=== PATIENT | female | born 2000 | race American Indian/Alaskan Native ===

== ENCOUNTER 2022-10-05 15:13 | Inpatient (IN) ==
[2022-10-05 16:03] LABS: Basophils # (auto) 0.04 K/uL (0-0.2); Basophils % (auto) 0.4 %; Eosinophils # (auto) 0.24 K/uL (0-0.50); Eosinophils % (auto) 2.1 %; Hematocrit (blood only) 38.7 % (37.0-47.0); Hemoglobin 13.2 g/dl (12.0-16.0); Immature Granulocytes # (auto) 0.06 K/uL (0.01-0.20); Immature Granulocytes % (auto) 0.5 %; Lymphocytes # (auto) 2.51 K/uL (1.2-3.4); Lymphocytes % (auto) 22.4 %; Mean Corpuscular Hemoglobin 28.1 pg (25.0-34.0); Mean Corpuscular Hgb Conc 34.1 g/dL (32.0-36.0); Mean Corpuscular Volume 82.5 fL (80.0-100.0); Mean Platelet Volume 9.9 fL (9.4-12.4); Monocytes # (auto) 0.55 K/uL (0.11-0.59); Monocytes % (auto) 4.9 %; Neutrophils % (auto) 69.7 %; Platelet Count 395 K/uL (130-400); RDW Coefficient of Variation 13.1 % (11.5-14.5); Red Blood Count 4.69 M/uL (4.20-5.40)
[2022-10-05 16:11] LABS: Pregnancy Test, Urine Negative (Negative)
[2022-10-05 16:13] LABS: Appearance Urine Clear (Clear); Bilirubin Urine Negative (Negative); Blood Urine Negative (Negative); Color Urine Yellow; Glucose Urine UA Negative (Negative); Ketones Urine Negative (Negative); Leukocyte Esterase Urine Negative (Negative); Nitrite Urine Negative (Negative); Protein Urine Negative (Negative); Specific Gravity Urine 1.022 (1.000-1.030); Urobilinogen Urine Negative (Negative)
--- NOTE | 2022-10-05 16:13 | Emergency Department Note ---
Impression & Plan Depression with suicidal ideation, Homicidal ideations ED Provider Note NAME: MONTSE ACUNA AGE: 21 SEX: F : 2000 ARRIVES VIA: [employer] INFORMANT: Patient, ED PROVIDER(S): Tyler Woods DO CHIEF COMPLAINT: Mental health evaluation HPI: The patient is a 21-year-old female who presented to the emergency department directly from [facility] for mental health evaluation. The patient states that she went to see the mental health department on campus for problems with thoughts of hurting yourself as well as thoughts of hurting specific people. She has been very vague about her complaints. She states that she was sent to the emergency department for further evaluation as well as for possible inpatient management. The patient has had no recent trauma. She denies having any overdose or drug use. The patient states that she does not feel safe at home. The patient has no history of previous admission for this in the past. The patient denies having any other medical issues including nausea vomiting or diarrhea. ROS: See above HPI for pertinent positives & negatives. A total of 10 systems reviewed and were otherwise negative. PAST MEDICAL HISTORY: See Below PAST SURGICAL HISTORY: See Below FAMILY HISTORY: See Below SOCIAL HISTORY: See Below HOME MEDICATIONS: See Below ALLERGIES: See Below VITALS: See Below PHYSICAL EXAMINATION: GENERAL: The patient is awake and alert. She appears somewhat guarded. EYES: The conjunctivae are clear. The pupils are round and reactive. EARS, NOSE, MOUTH AND THROAT: The nose is without any evidence of any deformity. NECK: The neck is nontender and supple. RESPIRATORY: Normal respiratory effort is noted there is no evidence of wheezing rhonchi or rales CARDIOVASCULAR: Regular rate and rhythm noted there no murmurs rubs or gallops normal S1 normal S2. GASTROINTESTINAL: The abdomen is soft. Abdomen is nontender. MUSCULOSKELETAL/EXTREMITIES: There is no evidence of gross deformity full range of motion is noted in the hips and shoulders. SKIN: There is no obvious evidence of any rash. There are no petechiae, pallor or cyanosis noted. NEUROLOGIC: Patient is awake alert and oriented x3 strength is symmetric patellar reflexes are 2+ bilaterally PSYCH: The patient makes good eye contact mostly evaluation. Her affect is flat. She continues to admit to thoughts of hurting other people. She becomes very vague when pressed. MEDICAL DECISION MAKING: The patient is a 21-year-old female who presented to the emergency department for a mental health evaluation. The patient arrived from [facility] from the campus. The patient was voicing significant suicidality as well as homicidal ideation. The patient was very vague with me but when she discussed her condition with the mental health telehealth case manager she was much more specific about her thoughts. The patient was felt to be a good candidate for inpatient management. She was medically cleared in the emergency department. She was evaluated by the mental health telehealth case manager. At this time she has been evaluated by [facility] for possible inpatient management on their unit. Triage Nursing notes reviewed. Prior medical records reviewed Vital Signs: reviewed and remarkable for no significant abnormalities Differential diagnosis: Mood disorder, infection, hypoglycemia, electrolyte abnormalities, cardiac sources, intracerebral event, toxicologic, trauma, neurologic, as well as other pathologies. ER treatment provided: See below Diagnostics interpreted by me: ECG: none Laboratory studies: As stated above and show below. Imaging studies: See below. Consultation(s): The case was discussed with the mental with telehealth case manager. Past Med/Surg History Medical History (Updated 10/05/22 @ 19:53 by Tyler Woods DO) Asthma Lupus anticoagulant disorder No pertinent family history Pulmonary embolus Surgical History No pertinent past surgical history Social History Smoking Status: Never smoker Feels Safe at Home: Yes Gender Identity: Female Allergies Allergies Allergy/AdvReac Type Severity Reaction Status Date / Time No Known Allergies Allergy Verified 10/05/22 15:47 Home Meds Home Medications Medication Instructions Recorded Confirmed acetaminophen 500 mg tablet 500 mg PO Q6H PRN Pain 07/12/21 10/05/22 (Tylenol Extra Strength) Results & Data (ED) Vital Signs Vital Signs - 24 hr 10/05/22 15:15 10/05/22 15:41 10/05/22 18:45 Pulse Rate [Right Finger] 84 90 Respiratory Rate 16 16 Respiratory Effort / Characteristics Non-Labored Respiratory Depth Normal Normal Respiratory Pattern Regular Blood Pressure [Right Arm] 115/69 108/74 Blood Pressure Mean [Right Arm] 84 85 Blood Pressure Position [Right Arm] Sitting Pulse Oximetry 97 99 Oxygen Delivery Method Room Air Room Air Sepsis Recent Fever Within 48 Hours No Sepsis New/Unexplained Change in Mental Status N/A Sepsis Action Taken by Nursing No Action Required Home Medications Current Medication List: was personally reviewed by me Laboratory Data Attestation: I reviewed the patient's lab results. 10/05/22 15:35 10/05/22 15:35 Lab Results 10/05/22 10/05/22 10/05/22 Range/Units 15:35 15:35 15:35 WBC 11.20 H (4.8-10.8) K/ul RBC 4.69 (4.20-5.40) M/uL Hgb 13.2 (12.0-16.0) g/dl Hct 38.7 (37.0-47.0) % MCV 82.5 (80.0-100.0) fL MCH 28.1 (25.0-34.0) pg MCHC 34.1 (32.0-36.0) g/dL RDW Std Deviation 39.0 (36.4-46.3) fL RDW Coeff of Libra 13.1 (11.5-14.5) % Plt Count 395 (130-400) K/uL MPV 9.9 (9.4-12.4) fL Immature Gran % (Auto) 0.5 % Neut % (Auto) 69.7 % Lymph % (Auto) 22.4 % [place] % (Auto) 4.9 % Eos % (Auto) 2.1 % Baso % (Auto) 0.4 % Neut # (Auto) 7.80 H (1.40-6.50) K/uL Lymph # (Auto) 2.51 (1.2-3.4) K/uL [place] # (Auto) 0.55 (0.11-0.59) K/uL Eos # (Auto) 0.24 (0-0.50) K/uL Baso # (Auto) 0.04 (0-0.2) K/uL Immature Gran # (Auto) 0.06 (0.01-0.20) K/uL Sodium 136 (136-145) mmol/L Potassium 3.8 (3.5-5.1) mmol/L Chloride 108 H (98-107) mmol/L Carbon Dioxide 23 (21-32) mmol/L Anion Gap 5 (3-11) BUN 10 (6-23) mg/dl Creatinine 0.65 (0.6-1.2) mg/dl Est Cr Clr Drug Dosing 127.9 ml/min Est GFR ( Amer) 148.1 ml/min Est GFR (Non-Af Amer) 127.8 ml/min BUN/Creatinine Ratio 15.4 (10-20) Glucose 98 (70-99(Fasting)) mg/dl Calcium 9.6 (8.6-10.3) mg/dl Total Bilirubin 0.4 (0.2-1.0) mg/dl AST 13 (13-39) U/L ALT 13 (7-52) U/L Alkaline Phosphatase 65 (34-104) U/L Total Protein 7.4 (6.0-8.3) gm/dl Albumin 4.2 (3.4-5.0) gm/dl Globulin 3.2 (2.5-4.0) gm/dl Albumin/Globulin Ratio 1.3 (0.9-2) TSH 1.306 (0.300-4.500) uIu/ml Urine Color Urine Appearance (Clear) Urine pH (4.5-7.5) Ur Specific [place] (1.000-1.030) Urine Protein (Negative) Urine Glucose (UA) (Negative) Urine Ketones (Negative) Urine Blood (Negative) Urine Nitrite (Negative) Urine Bilirubin (Negative) Urine Urobilinogen (Negative) Ur Leukocyte Esterase (Negative) Urine Test (Negative) Salicylates (3.0-30) mg/dl Urine Opiates Screen (Neg) Ur Methadone, Qual (Neg) Acetaminophen (10-30) ug/ml Urine Barbiturates (Neg) Ur Phencyclidine (PCP) (Neg) U Amphetamin/Meth Scrn (Neg) MDMA (Ecstasy) Screen (Neg) U Benzodiazepines Scrn (Neg) Ur Cocaine Metabolite (Neg) U Marijuana (THC) Screen (Neg) Ethyl Alcohol mg/dL (<10.0) mg/dl SARS-CoV-2, RNA, NAAT (NEGATIVE) 10/05/22 10/05/22 10/05/22 Range/Units 15:35 15:35 15:35 WBC (4.8-10.8) K/ul RBC (4.20-5.40) M/uL Hgb (12.0-16.0) g/dl Hct (37.0-47.0) % MCV (80.0-100.0) fL MCH (25.0-34.0) pg MCHC (32.0-36.0) g/dL RDW Std Deviation (36.4-46.3) fL RDW Coeff of Libra (11.5-14.5) % Plt Count (130-400) K/uL MPV (9.4-12.4) fL Immature Gran % (Auto) % Neut % (Auto) % Lymph % (Auto) % [place] % (Auto) % Eos % (Auto) % Baso % (Auto) % Neut # (Auto) (1.40-6.50) K/uL Lymph # (Auto) (1.2-3.4) K/uL [place] # (Auto) (0.11-0.59) K/uL Eos # (Auto) (0-0.50) K/uL Baso # (Auto) (0-0.2) K/uL Immature Gran # (Auto) (0.01-0.20) K/uL Sodium (136-145) mmol/L Potassium (3.5-5.1) mmol/L Chloride (98-107) mmol/L Carbon Dioxide (21-32) mmol/L Anion Gap (3-11) BUN (6-23) mg/dl Creatinine (0.6-1.2) mg/dl Est Cr Clr Drug Dosing ml/min Est GFR ( Amer) ml/min Est GFR (Non-Af Amer) ml/min BUN/Creatinine Ratio (10-20) Glucose (70-99(Fasting)) mg/dl Calcium (8.6-10.3) mg/dl Total Bilirubin (0.2-1.0) mg/dl AST (13-39) U/L ALT (7-52) U/L Alkaline Phosphatase (34-104) U/L Total Protein (6.0-8.3) gm/dl Albumin (3.4-5.0) gm/dl Globulin (2.5-4.0) gm/dl Albumin/Globulin Ratio (0.9-2) TSH (0.300-4.500) uIu/ml Urine Color Urine Appearance (Clear) Urine pH (4.5-7.5) Ur Specific [place] (1.000-1.030) Urine Protein (Negative) Urine Glucose (UA) (Negative) Urine Ketones (Negative) Urine Blood (Negative) Urine Nitrite (Negative) Urine Bilirubin (Negative) Urine Urobilinogen (Negative) Ur Leukocyte Esterase (Negative) Urine Test (Negative) Salicylates < 3.0 L (3.0-30) mg/dl Urine Opiates Screen (Neg) Ur Methadone, Qual (Neg) Acetaminophen < 3 L (10-30) ug/ml Urine Barbiturates (Neg) Ur Phencyclidine (PCP) (Neg) U Amphetamin/Meth Scrn (Neg) MDMA (Ecstasy) Screen (Neg) U Benzodiazepines Scrn (Neg) Ur Cocaine Metabolite (Neg) U Marijuana (THC) Screen (Neg) Ethyl Alcohol mg/dL < 10.0 (<10.0) mg/dl SARS-CoV-2, RNA, NAAT NEGATIVE (NEGATIVE) 10/05/22 10/05/22 10/05/22 Range/Units 15:35 15:35 Unknown WBC (4.8-10.8) K/ul RBC (4.20-5.40) M/uL Hgb (12.0-16.0) g/dl Hct (37.0-47.0) % MCV (80.0-100.0) fL MCH (25.0-34.0) pg MCHC (32.0-36.0) g/dL RDW Std Deviation (36.4-46.3) fL RDW Coeff of Libra (11.5-14.5) % Plt Count (130-400) K/uL MPV (9.4-12.4) fL Immature Gran % (Auto) % Neut % (Auto) % Lymph % (Auto) % [place] % (Auto) % Eos % (Auto) % Baso % (Auto) % Neut # (Auto) (1.40-6.50) K/uL Lymph # (Auto) (1.2-3.4) K/uL [place] # (Auto) (0.11-0.59) K/uL Eos # (Auto) (0-0.50) K/uL Baso # (Auto) (0-0.2) K/uL Immature Gran # (Auto) (0.01-0.20) K/uL Sodium (136-145) mmol/L Potassium (3.5-5.1) mmol/L Chloride (98-107) mmol/L Carbon Dioxide (21-32) mmol/L Anion Gap (3-11) BUN (6-23) mg/dl Creatinine (0.6-1.2) mg/dl Est Cr Clr Drug Dosing ml/min Est GFR ( Amer) ml/min Est GFR (Non-Af Amer) ml/min BUN/Creatinine Ratio (10-20) Glucose (70-99(Fasting)) mg/dl Calcium (8.6-10.3) mg/dl Total Bilirubin (0.2-1.0) mg/dl AST (13-39) U/L ALT (7-52) U/L Alkaline Phosphatase (34-104) U/L Total Protein (6.0-8.3) gm/dl Albumin (3.4-5.0) gm/dl Globulin (2.5-4.0) gm/dl Albumin/Globulin Ratio (0.9-2) TSH (0.300-4.500) uIu/ml Urine Color Yellow Urine Appearance Clear (Clear) Urine pH 5.0 (4.5-7.5) Ur Specific [place] 1.022 (1.000-1.030) Urine Protein Negative (Negative) Urine Glucose (UA) Negative (Negative) Urine Ketones Negative (Negative) Urine Blood Negative (Negative) Urine Nitrite Negative (Negative) Urine Bilirubin Negative (Negative) Urine Urobilinogen Negative (Negative) Ur Leukocyte Esterase Negative (Negative) Urine Test Negative (Negative) Salicylates (3.0-30) mg/dl Urine Opiates Screen Neg (Neg) Ur Methadone, Qual Neg (Neg) Acetaminophen (10-30) ug/ml Urine Barbiturates Neg (Neg) Ur Phencyclidine (PCP) Neg (Neg) U Amphetamin/Meth Scrn Neg (Neg) MDMA (Ecstasy) Screen Neg (Neg) U Benzodiazepines Scrn Neg (Neg) Ur Cocaine Metabolite Neg (Neg) U Marijuana (THC) Screen Neg (Neg) Ethyl Alcohol mg/dL (<10.0) mg/dl SARS-CoV-2, RNA, NAAT (NEGATIVE) Discharge Plan Visit Data Chief Complaint: Mental Health Evaluation Stated Complaint: [facility] ED Provider: Tyler Woods Discharge Problem: Depression with suicidal ideation, Homicidal ideations Patient Disposition: Still a Patient Forms Stand Alone Forms: My [facility], Suicide Prevention Resources Prescriptions Prescriptions: No Action acetaminophen [Tylenol Extra Strength] 500 mg Tablet 500 mg PO Q6H PRN (Reason: Pain) Referrals Referrals: PCP,NO [Physician] -
[2022-10-05 16:21] LABS: Albumin Globulin Ratio 1.3 (0.9-2); Albumin Level 4.2 gm/dl (3.4-5.0); BUN Creatinine Ratio 15.4 (10-20); Bilirubin,Total 0.4 mg/dl (0.2-1.0); Calcium 9.6 mg/dl (8.6-10.3); Creatinine Clr Calc Pharmacy 127.9 ml/min; Est GFR (African American) 148.1 ml/min; Est GFR (Non-African American) 127.8 ml/min; Globulin 3.2 gm/dl (2.5-4.0); Potassium 3.8 mmol/L (3.5-5.1); Total Protein 7.4 gm/dl (6.0-8.3)
[2022-10-05 16:29] LABS: Acetaminophen < 3 ug/ml (10-30); Salicylate < 3.0 mg/dl (3.0-30)
[2022-10-05 16:47] LABS: Amphetamines+Metham, Urine Neg (Neg); Barbiturates, Urine Neg (Neg); Benzodiazepine, Urine Neg (Neg); Cocaine, Urine Neg (Neg); MDMA (Ecstacy), Urine Neg (Neg); Methadone, Urine Neg (Neg); Opiate, Urine Neg (Neg); Phencyclidine, Urine Neg (Neg)
[2022-10-05] MEDS ORDERED: BISMUTH SUBSALICYLATE LIQD 236 ML PO PRN (20:19)
[2022-10-05] MEDS ORDERED: ALUMINUM/MAGNESIUM SUSP 30 ML UDC PO PRN (20:19)
[2022-10-05] MEDS ORDERED: ACETAMINOPHEN 325 MG TAB PO PRN (20:19)
[2022-10-05] MEDS ORDERED: hydrOXYzine HCl 25 MG TAB PO PRN ×2 (20:19)
[2022-10-05] MEDS ORDERED: MAGNESIUM HYDROXIDE SUSP 30 ML UDC PO PRN (20:19)
[2022-10-05] MEDS ORDERED: SODIUM CHLORIDE 0.65% NA SOLN 45 ML (OCEAN) PRN (20:19)
[2022-10-05] MEDS ORDERED: OLANZapine 5 MG TABLET PO PRN (22:12)
--- NOTE | 2022-10-06 08:42 | History & Physical ---
Date of Service October 06, 2022 Impression / Recommendations Impression Montse is a 21 year old woman with a history of self-harm, lupus anticoagulant disorder (hasn't been adherent with her Xarelto prescription) who was admitted for SI and HI toward a peer. Diagnostically consistent with Autism Spectrum Disorder as well as likely major depressive disorder with increased irritability leading to HI versus borderline personality disorder versus antisocial personality disorder versus obsessive compulsive disorder. Well she did not carry a diagnosis of ASD prior to admission she notes her family was not receptive to mental health diagnoses or treatment and at this time, even without the ability to do a comprehensive ASD workup involving neuropsych testing, she presents with all of the classic symptoms of ASD to the point that making the diagnosis at this time seems clinically appropriate and important as it may impact access to treatment options moving forward. The patient is deemed unstable and requires psychiatric hospitalization for diagnostic clarification, safety and stabilization, medication management and development of further coping skills. Acute risk of self harm is elevated, as discussed below, due to SI with possible plans and severe depression. Acute risk of harm to others is felt to be high currently given recent HI toward a peer who lives in her dorm on campus. Discussed medication treatment options in detail. Discussed risks, benefits and alternatives. Patient would like to start and consented to sertraline for MDD, anxiety, possible OCD. Reviewed side effects including but not limited to: GI, LOPEZ, sexual side effects, and counseled on black box warning of potential for emergence of or increased SI and need to let staff know should this occur or should they feel unsafe. Also discussed importance of seeking emergency care following discharge if this side effect occurs in the future. MNPR due to intermittent HI (1) Autism spectrum disorder: (2) Depression with suicidal ideation: (3) Homicidal ideations: Plan 10/06/2022: The patient was admitted to the [facility] ([facility]) on q15 min checks (behavioral with suicide precautions) for safety. The patient will participate in group, recreational, and milieu therapies and will be offered additional individual and family sessions as clinically appropriate. -Start sertraline 25mg daily -Have her complete Y-BOCS OCD screening as some of her HI seems to be ego- dystonic and instrusive in nature -She is unwilling to share the name of the peer that she had HI toward but stated that she shared this information with her RA supervisor [employer]intering [employer], she signed an PADMA for student care and advocacy at [facility]. Spoke with [employer] student care and advocacy alongside social work who confirmed they believe they know the peer she identified and will complete the duty to warn via [facility] police and will confirm when this has occurred. Inventory Assets Strengths: supportive relationship with her partner, willing to get treatment Needs: safety and stabilization, medication adjustment, additional coping skills, increased outpatient services Suicide Risk Level Suicide Risk Level: High-Moderate (q15 min suicide checks) (severe depression with SI with plan prior to admission but feels safe in the hospital, able to safety contract and agrees to let nursing/staff know should they develop plan, intent or feel unable to remain safe. 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 Chief Complaint "A lot of things are mixing with anger". History of Present Illness Montse presented to the hospital at the recommendation of [employer] [facility] for worsening SI with inability to safety plan and HI toward a peer with thoughts of stabbing him with a knife. She has been self-harming via cutting and burning herself and more recently via punching her fist into a wall as "I've determined how far I can hurt my dominant hand without it interfering with my work". She describes her self-harm as occurring in bouts and that it increased in July due to worsening depression and stressors related to school. 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 She endorses symptoms of depression including hopelessness, helplessness, low motivation, anhedonia, poor concentration and "sporadic" energy level, sleep, and appetite. She speaks vaguely at times about various symptoms, including suicidality, by quoting statistics about methods of suicide and rates of lethality of various forms of suicide but notes that she hasn't ever settled on a specific plan because "a lot of them aren't logistically sound due to lack of access". She endorses a long history of having intrusive homicidal thoughts but that these intensified toward a peer who also serves as an RA after "we had a break-up of sorts, not a romantic one but that's the best way to describe it". Since that time she'd had thoughts of wanting to hurt this peer to the point "my desire and I have too much alone time with him" caused her to seek help from a supervisor [employer]intering [employer] which lead to her [facility]S evaluation and then presentation to the hospital. She describes these violent thoughts as historically being "thoughts of harm as a defensive manner" but recently became more directed and "less tangible" which she attributes to not feeling as though she fits in and facing a lot of stress and social issues. She describes that "there's a [place] more [place] and I'm not permitted to feel human". She is confident that she would never act on her violent thoughts stating "it wouldn't be logical to hurt people that culturally indefensible across all cultures". She describes her recent stressors as "a concurrent collision and snowballing" of multiple factors but concretely as the academic/professional concerns about her ability to ultimately find a career in [id number] design. Further recent history reviewed and confirmed as documented by ED psych CM on 10/05/2022: "Pt was referred here from [facility]S due to not being able to contract for safety for herself or contract to not harm others. Pt states she does not have a plan to hurt anyone but does have specific people in mind due to different situations that happened. She has no history of violence or aggression. She has been having suicidal thoughts as well and stated her plan would be to overdose. She stated she does have a specific drug in mind but is not sure how she would obtain it currently. She stated she has researched how much she would need to take in order to kill herself. Pt also has two perez on her arm. She stated she has a history of self-harm by cutting and burning herself. She has never needed medical attention due to self-harm. The pt is very vague in answering questions and it's difficult to get straight answers from her. CAPS report states she was vague with them as well. Their report states the pt reports no specific plan for suicide but that she created a "to-do" list for things that she would like to complete prior to killing herself. Met with pt to complete psychiatric assessment. Pt states she does not have any mental health diagnosis and has never been inpatient for treatment before. She has no outpatient providers. Pt reports increased depression symptoms of sadness, crying, feeling helpless and hopeless, self-devaluation, loss of daily functioning, lack of motivation, sporadic appetite, and sporadic sleep. Pt reports she will go days at a time without feeling hungry at all and then will feel extremely hungry other days. She also reports having mood shifts that are similar in that she will have periods of time where her mood is elevated and she has increased energy. She reports these periods can last from a couple of hours to a couple of days. During these periods she states she is more talkative, has racing thoughts, flight of ideas, excessive spending, and requires less sleep. Pt stated that she sometimes gets verbally aggressive but has not acted out aggressively. She does have homicidal thoughts toward people. There are specific people that the pt has thoughts about killing and harming but she will not disclose who these people are. She stated this past Wednesday she was having a disagreement with one of these individuals and found herself having thoughts to kill him by stabbing while also having a knife in her hand. Pt denies picking the knife up due to these thoughts and stated the knife was already in her hand and she believes having possession of the knife is what made her think of this plan. She also stated she later in the evening had thoughts of slamming this individual into a wall and choking him just to see the fear in his eyes. While discussing her homicidal thoughts and thoughts of violence the pt has a large smile on her face." The ED provider recommended she be restarted on Xarelto but she declined allowing me to start this, stated she will consider restarting in the outpatient setting. She is not currently prescribed any psychiatric medications. Psychiatric ROS notable for no current nor history of symptoms of luana, psychosis, PTSD, nor eating disorder. History of self-harm via cutting, burning, punching. Past Psychiatric History Previous Psych History: no formal diagnoses Outpatient Services: none, saw a grief counselor at age 9 after her mom Previous Psych Admissions: n/a Do You Have Access To A Gun?: Yes (at father's home in [place]) History of Previous Suicide Attempt: No Past Medication Trials: none Past Head Trauma/Neuro History History of Concussion/Seizure: No Allergies Allergy/AdvReac Type Severity Reaction Status Date / Time No Known Allergies Allergy Verified 10/06/22 12:51 Home Medications Medication Instructions Recorded Confirmed Type acetaminophen 500 mg tablet 500 mg PO Q6H PRN Pain 07/12/21 10/05/22 History (Tylenol Extra Strength) Family History Family History of: Doesn't Know Alcohol History Hx of Alcohol Use Over the Past 12 Months: No AUDIT Total Score: 5 Occassional social use Smoking Use Have You Smoked or Used Tobacco Products in the Last 30 Days: No Smoking Status: Never smoker Substance History Hx of Prescription Med Misuse Over the Past 12 Months: No Hx of Over the Counter Med Misuse Over the Past 12 Months: No Hx of Inhalent Misuse Over the Past 12 Months: No Hx of Organic Substance Use Over the Past 12 Months: No Hx of Illegal Substances/Street Drug Use Over Past 12 Months: No Problems as a Result of Past Substance Use: None Identified Has used cannabis about 10 times in the last 1.5 years, typically while using alcohol as she finds the cannabis then keeps her mood "dennys". Personal History Living Arrangements: Dorm Childhood: Grew up in [place], her mother when she was 9. Has distant relationship with her father. He lives between [place] and [place]. 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) Marital Status: Single (has significant other, Warren, who lives in [facility]) Number Of Children: 0 Beliefs That Will Affect Care: None Current Legal Problems: No Hx Legal Problems: No Hx Traumatic Life Events: Yes (mother at age 9) Patient History Medical History (Updated 10/06/22 @ 12:35 by Hyacinth Aguila MD) Asthma Lupus anticoagulant disorder No pertinent family history Pulmonary embolus Surgical History No pertinent past surgical history Social History Smoking Status: Never smoker Preferred Language: Central African Communication Ability: Effective Incident Engineer Required: No Beliefs That Will Affect Care: None Feels Safe at Home: Yes Gender Identity: Female Assistive Devices: Glasses Review of Systems Review of Systems: All systems reviewed & are unremarkable except as noted in HPI & below Physical Exam Psychiatric: Orientation: alert and oriented x 3 Apperance: appropriately dressed and appropriately groomed Eye Contact: + poor eye contact Motor Behavior: no abnormal motor movements Speech: + abnormal rate/rhythm/volume of speech (monotone with little variability ) Affect: + constricted affect Mood: + depressed mood and + anxious mood Thought Process: goal directed thought process and + concrete thought process Thought Content: + obsessions (of violent thoughts) and reality based without delusions Suicidal Thoughts: denies suicidal thoughts (intermittent thoughts ) and denies suicidal intent; + reports suicidal plan (none for hospital but has thought of various options for outside hospital) Homicidal Thoughts: denies homicidal intent; + reports homicidal thoughts (intermittent HI, sometimes ego-syntonic and sometimes ego- dystonic) and + reports homicidal plan (considering stabbing peer with a knife ) Hallucinations: no auditory hallucinations and no visual hallucinations Cognition: recent memory grossly intact, remote memory grossly intact, attention grossly intact and language grossly intact Estimated Intelligence: consistent with education level Insight: + limited insight Judgment: + limited judgement Vital Signs (Past 24 Hours): Last Vital Signs Temp 36.9 C 10/06/22 06:39 Pulse 73 10/06/22 06:40 Resp 16 10/06/22 06:39 BP 101/69 10/06/22 06:40 Pulse Ox 98 10/05/22 21:10 O2 Del Method Room Air 10/05/22 21:10 Exam Statement: A physical exam was performed in the ED by Dr. Woods for the purposes of medical clearance. I accept that physical as correct and adequate for the purposes of the inpatient physical exam. Results & Data ([facility]) Laboratory Results Laboratory Results - last 24 hr 10/05/22 10/05/2210/05/23 15:35 15:35 15:35 WBC 11.20 H RBC 4.69 Hgb 13.2 Hct 38.7 MCV 82.5 MCH 28.1 MCHC 34.1 RDW Std Deviation 39.0 RDW Coeff of Libra 13.1 Plt Count 395 MPV 9.9 Immature Gran % (Auto) 0.5 Neut % (Auto) 69.7 Lymph % (Auto) 22.4 Elk % (Auto) 4.9 Eos % (Auto) 2.1 Baso % (Auto) 0.4 Neut # (Auto) 7.80 H Lymph # (Auto) 2.51 Elk # (Auto) 0.55 Eos # (Auto) 0.24 Baso # (Auto) 0.04 Immature Gran # (Auto) 0.06 Sodium 136 Potassium 3.8 Chloride 108 H Carbon Dioxide 23 Anion Gap 5 BUN 10 Creatinine 0.65 Est Cr Clr Drug Dosing 127.9 Est GFR ( Amer) 148.1 Est GFR (Non-Af Amer) 127.8 BUN/Creatinine Ratio 15.4 Glucose 98 Calcium 9.6 Total Bilirubin 0.4 AST 13 ALT 13 Alkaline Phosphatase 65 Total Protein 7.4 Albumin 4.2 Globulin 3.2 Albumin/Globulin Ratio 1.3 TSH 1.306 Urine Color Urine Appearance Urine pH Ur Specific [place] Urine Protein Urine Glucose (UA) Urine Ketones Urine Blood Urine Nitrite Urine Bilirubin Urine Urobilinogen Ur Leukocyte Esterase Urine Test Salicylates Urine Opiates Screen Ur Methadone, Qual Acetaminophen Urine Barbiturates Ur Phencyclidine (PCP) U Amphetamin/Meth Scrn MDMA (Ecstasy) Screen U Benzodiazepines Scrn Ur Cocaine Metabolite U Marijuana (THC) Screen Ethyl Alcohol mg/dL SARS-CoV-2, RNA, NAAT 10/05/22 10/05/22 10/05/22 15:35 15:35 15:35 WBC RBC Hgb Hct MCV MCH MCHC RDW Std Deviation RDW Coeff of Libra Plt Count MPV Immature Gran % (Auto) Neut % (Auto) Lymph % (Auto) Elk % (Auto) Eos % (Auto) Baso % (Auto) Neut # (Auto) Lymph # (Auto) Elk # (Auto) Eos # (Auto) Baso # (Auto) Immature Gran # (Auto) Sodium Potassium Chloride Carbon Dioxide Anion Gap BUN Creatinine Est Cr Clr Drug Dosing Est GFR ( Amer) Est GFR (Non-Af Amer) BUN/Creatinine Ratio Glucose Calcium Total Bilirubin AST ALT Alkaline Phosphatase Total Protein Albumin Globulin Albumin/Globulin Ratio TSH Urine Color Urine Appearance Urine pH Ur Specific [place] Urine Protein Urine Glucose (UA) Urine Ketones Urine Blood Urine Nitrite Urine Bilirubin Urine Urobilinogen Ur Leukocyte Esterase Urine Test Salicylates < 3.0 L Urine Opiates Screen Ur Methadone, Qual Acetaminophen < 3 L Urine Barbiturates Ur Phencyclidine (PCP) U Amphetamin/Meth Scrn MDMA (Ecstasy) Screen U Benzodiazepines Scrn Ur Cocaine Metabolite U Marijuana (THC) Screen Ethyl Alcohol mg/dL < 10.0 SARS-CoV-2, RNA, NAAT NEGATIVE 10/05/22 10/05/22 10/05/22 15:35 15:35 Unknown WBC RBC Hgb Hct MCV MCH MCHC RDW Std Deviation RDW Coeff of Libra Plt Count MPV Immature Gran % (Auto) Neut % (Auto) Lymph % (Auto) Elk % (Auto) Eos % (Auto) Baso % (Auto) Neut # (Auto) Lymph # (Auto) Elk # (Auto) Eos # (Auto) Baso # (Auto) Immature Gran # (Auto) Sodium Potassium Chloride Carbon Dioxide Anion Gap BUN Creatinine Est Cr Clr Drug Dosing Est GFR ( Amer) Est GFR (Non-Af Amer) BUN/Creatinine Ratio Glucose Calcium Total Bilirubin AST ALT Alkaline Phosphatase Total Protein Albumin Globulin Albumin/Globulin Ratio TSH Urine Color Yellow Urine Appearance Clear Urine pH 5.0 Ur Specific [place] 1.022 Urine Protein Negative Urine Glucose (UA) Negative Urine Ketones Negative Urine Blood Negative Urine Nitrite Negative Urine Bilirubin Negative Urine Urobilinogen Negative Ur Leukocyte Esterase Negative Urine Test Negative Salicylates Urine Opiates Screen Neg Ur Methadone, Qual Neg Acetaminophen Urine Barbiturates Neg Ur Phencyclidine (PCP) Neg U Amphetamin/Meth Scrn Neg MDMA (Ecstasy) Screen Neg U Benzodiazepines Scrn Neg Ur Cocaine Metabolite Neg U Marijuana (THC) Screen Neg Ethyl Alcohol mg/dL SARS-CoV-2, RNA, NAAT Current Inpatient Medications Current Inpatient Medications: Current Inpatient Medications Acetaminophen (Acetaminophen 325 Mg Tab) 650 mg PO Q4H PRN PRN Reason: Headache or Minor Fever Stop: 11/04/22 20:18 Al Hydrox/Mg Hydrox/Simethicone (Aluminum/Magnesium Susp 30 Ml Udc) 30 ml PO Q4H PRN PRN Reason: GI Upset Stop: 11/04/22 20:18 Bismuth Subsalicylate (Bismuth Subsalicylate Liqd 236 Ml) 15 ml PO PRN PRN PRN Reason: Loose Stool Stop: 11/04/22 20:18 Hydroxyzine HCl (Hydroxyzine Hcl 25 Mg Tab) 50 mg PO HSZ PRN PRN Reason: Insomnia Stop: 11/04/22 20:18 Hydroxyzine HCl (Hydroxyzine Hcl 25 Mg Tab) 25 mg PO Q4H PRN PRN Reason: Anxiety Stop: 11/04/22 20:18 Magnesium Hydroxide (Magnesium Hydroxide Susp 30 Ml Udc) 30 ml PO DAILY PRN PRN Reason: Constipation Stop: 11/04/22 20:18 Olanzapine (Olanzapine 5 Mg Tablet) 5 mg PO BID PRN PRN Reason: Agitation Stop: 11/05/22 08:59 Sodium Chloride (Sodium Chloride 0.65% Na Soln 45 Ml ([place])) 1 - 2 sprays NA PRN PRN PRN Reason: Nasal Dryness/Congestion Stop: 11/04/22 20:18
[2022-10-06] MEDS: SERTRALINE HCL 50 MG TABLET PO SCH (14:05)
[2022-10-07] MEDS: SERTRALINE HCL 50 MG TABLET PO SCH (08:58)
--- NOTE | 2022-10-07 20:50 | Psychiatric Progress Note ---
Date of Service October 07, 2022 Impression / Recommendations Impression Montse is a 21 year old woman with a history of self-harm, lupus anticoagulant disorder (hasn't been adherent with her Xarelto prescription) who was admitted for SI and HI toward a peer. Diagnostically consistent with Autism Spectrum Disorder as well as likely major depressive disorder with increased irritability leading to HI versus borderline personality disorder versus antisocial personality disorder versus obsessive compulsive disorder. Well she did not carry a diagnosis of ASD prior to admission she notes her family was not receptive to mental health diagnoses or treatment and at this time, even without the ability to do a comprehensive ASD workup involving neuropsych testing, she presents with all of the classic symptoms of ASD to the point that making the diagnosis at this time seems clinically appropriate and important as it may impact access to treatment options moving forward. The patient is deemed unstable and requires psychiatric hospitalization for diagnostic clarification, safety and stabilization, medication management and development of further coping skills. MNPR due to intermittent HI 10/07/2022: Ongoing depression and SI, lessening of HI today. Tolerating low dose sertraline. Provided with mood disorder questionnaire and Y-BOCS given question of possible recent manic-like elevated mood episode per her report today. Ongoing processing about ASD and how this can impact how she processes emotions and possibly influences her experience of feeling anger and this translating at times into HI. She provided me with name of RA peer today to whom she had recent HI toward, she understands duty to warn will occur. Duty to warn was completed alongside social media strategist Anny, at ~2:00pm to Officer Wale Villarreal at [facility] [employer] (badge #[id number]) regarding her previous homi cidal ideation toward RA peer. [employer] called back at 4pm and I spoke with Officer Hemant Steiner (badge number #[id number]) to answer additional questions regarding documented previous homicial threats as part of duty to warn. Officer Jatin reported that she will complete duty to warn for the named RA peer and will let us know when this has been completed. (1) Autism spectrum disorder: (2) Depression with suicidal ideation: (3) Homicidal ideations: Plan 10/07/2022: -Continue sertraline 25mg daily - Y-BOCS and Mood disorder questionnaires for additional symptom screening -Completed duty to warn for peer RA with [facility] [employer] 10/06/2022: The patient was admitted to the [facility]) on q15 min checks (behavioral with suicide precautions) for safety. The patient will participate in group, recreational, and milieu therapies and will be offered additional individual and family sessions as clinically appropriate. -Start sertraline 25mg daily -Have her complete Y-BOCS OCD screening as some of her HI seems to be ego- dystonic and instrusive in nature -She is unwilling to share the name of the peer that she had HI toward but stated that she shared this information with her RA expedition supervisor, she signed an PADMA for student care and advocacy at [employer] [facility]. Spoke with [facility] student care and advocacy alongside social work who confirmed they believe they know the peer she identified and will complete the duty to warn via [facility] campus police and will confirm when this has occurred. Inventory Assets Strengths: supportive relationship with her partner, willing to get treatment Needs: safety and stabilization, medication adjustment, additional coping skills, increased outpatient services Suicide Risk Level Suicide Risk Level: High-Moderate (q15 min suicide checks) (severe depression with SI with plan prior to admission but feels safe in the hospital, able to safety contract and agrees to let nursing/staff know should they develop plan, intent or feel unable to remain safe. 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 Chief Complaint "I'm alright". Review of Systems Sleep Information Total Hours of Sleep: 7.75 Meal Information Percent Meal Consumed - Breakfast: 100 Percent Meal Consumed - Lunch: 100 Percent Meal Consumed - Dinner: 90 Subjective Subjective Patient was seen & assessed and interval progress reviewed with treatment team nursing and social work. Very upset yesterday and isolated to her room after learning news that [facility] has issued an interim suspension for her. She did call her father and he is driving from [place] to come up to [place] to help with getting her belongings. She completed a zoom call with [facility] student care and advocacy to ask more questions she had related to the interim suspension in the afternoon and then attended some groups on the unit. When I met with her she reported her mood as "alright". Continues to have SI but notes this has gotten "mildly better than yesterday" when SI increased due to the suspension and she had thoughts that "maybe I would have been better off if I had just killed myself". Discussed with her her frustration that seeking help for her HI also has resulted in a suspension. She understands why actions occurred but emphasizes that "I don't want to be a threat to others" and denied any current HI toward anyone. She continues to deny any recent HI except to a peer Anthony Harmon, who she states she now feels like "I don't want to hurt him". In processing this further she notes that "I'm often paranoid things will happen to people around me" and wonders if this is how she developed HI. We also explore again possibility of worsening depression leading to increased irritability which she feels "is definitely a factor". Discussed any other potential recent factors contributing to HI toward Anthony and she described sense of him having "broken my trust" and that "maybe that day I had the strong violent thoughts I was more manic". She goes to say sometimes she has elevated energy levels that last a few hours, or maybe once for more than one day, and she'll feel "more energetic but not in a way I can get anything done" and her mind may move more quickly. She agrees to complete mood disorder questionnaire so we can further explore possibility of history of manic episodes. She also emphasizes that "If I have conflicts I end up hurting myself not others" and reconfirms to me that she has no history of ever being violent toward others. She continues to state some of her challenges with feeling HI at times or having conflict with others may due to her "lack of empathy". Explored this with her including discussion of reasons why I think she has Autism Spectrum Disorder. She agrees that ASD could be possible and notes that she has some friends with ASD and tends to find "that we can communicate better". She confirmed that she can often struggle with understanding how others are feeling in social settings and sometimes may misinterpret others statements and prefers when there are "clear instructions". 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 She also shared her cultural identification as [place] and we discussed how she feels this has lead to additional social challenges due to being marginalized at college. She had attended some of the campus events for [employer] students but found that most students were from a diffenent cultural background. Discussed how she has found good relationships with some peers at school who also identified as "" and that they can relate to some of the struggles culturally and ethnically of being at [employer] which is predominantly students who identify as white or . Denies side effects from sertraline except her baseline stomach issues and migraines, doesn't think these are any worse. Reviewed symptoms we would expect to improve as medication starts to work over the next few weeks. Physical Exam Psychiatric Orientation: alert and oriented x 3 Apperance: appropriately dressed and appropriately groomed Eye Contact: + poor eye contact Motor Behavior: no abnormal motor movements Speech: + abnormal rate/rhythm/volume of speech (monotone with little variability ) Affect: + constricted affect Mood: + depressed mood and + anxious mood Thought Process: goal directed thought process and + concrete thought process Thought Content: + obsessions (of violent thoughts) and reality based without delusions Suicidal Thoughts: denies suicidal thoughts (intermittent thoughts ) and denies suicidal intent; + reports suicidal plan (none for hospital but has thought of various options for outside hospital) Homicidal Thoughts: denies homicidal intent; + reports homicidal thoughts (intermittent HI, sometimes ego-syntonic and sometimes ego-dystonic) and + reports homicidal plan (none today) Hallucinations: no auditory hallucinations and no visual hallucinations Cognition: recent memory grossly intact, remote memory grossly intact, attention grossly intact and language grossly intact Estimated Intelligence: consistent with education level Insight: + limited insight Judgment: + limited judgement Vital Signs (Past 24 Hours) Last Vital Signs Temp 36.9 C 10/07/22 06:43 Pulse 92 H 10/07/22 06:43 Resp 16 10/07/22 06:43 BP 104/71 10/07/22 06:43 Pulse Ox 98 10/05/22 21:10 O2 Del Method Room Air 10/05/22 21:10 Results & Data ([facility]) Current Inpatient Medications Current Inpatient Medications: Current Inpatient Medications Acetaminophen (Acetaminophen 325 Mg Tab) 650 mg PO Q4H PRN PRN Reason: Headache or Minor Fever Stop: 11/04/22 20:18 Al Hydrox/Mg Hydrox/Simethicone (Aluminum/Magnesium Susp 30 Ml Udc) 30 ml PO Q4H PRN PRN Reason: GI Upset Stop: 11/04/22 20:18 Bismuth Subsalicylate (Bismuth Subsalicylate Liqd 236 Ml) 15 ml PO PRN PRN PRN Reason: Loose Stool Stop: 11/04/22 20:18 Hydroxyzine HCl (Hydroxyzine Hcl 25 Mg Tab) 50 mg PO HSZ PRN PRN Reason: Insomnia Stop: 11/04/22 20:18 Hydroxyzine HCl (Hydroxyzine Hcl 25 Mg Tab) 25 mg PO Q4H PRN PRN Reason: Anxiety Stop: 11/04/22 20:18 Magnesium Hydroxide (Magnesium Hydroxide Susp 30 Ml Udc) 30 ml PO DAILY PRN PRN Reason: Constipation Stop: 11/04/22 20:18 Olanzapine (Olanzapine 5 Mg Tablet) 5 mg PO BID PRN PRN Reason: Agitation Stop: 11/05/22 08:59 Sertraline HCl (Sertraline Hcl 50 Mg Tablet) 25 mg PO QAM ALICIA Stop: 11/05/22 12:44 Last Admin: 10/07/22 08:58 Dose: 25 mg Sodium Chloride (Sodium Chloride 0.65% Na Soln 45 Ml ([place])) 1 - 2 sprays NA PRN PRN PRN Reason: Nasal Dryness/Congestion Stop: 11/04/22 20:18
[2022-10-08] MEDS: SERTRALINE HCL 50 MG TABLET PO SCH (09:03)
--- NOTE | 2022-10-08 11:45 | Psychiatric Progress Note ---
Date of Service October 08, 2022 Impression / Recommendations Impression Montse is a 21 year old woman with a history of self-harm, lupus anticoagulant disorder (hasn't been adherent with her Xarelto prescription) who was admitted for SI and HI toward a peer. Diagnostically consistent with Autism Spectrum Disorder as well as likely major depressive disorder with increased irritability leading to HI versus borderline personality disorder versus antisocial personality disorder versus obsessive compulsive disorder. Well she did not carry a diagnosis of ASD prior to admission she notes her family was not receptive to mental health diagnoses or treatment and at this time, even without the ability to do a comprehensive ASD workup involving neuropsych testing, she presents with all of the classic symptoms of ASD to the point that making the diagnosis at this time seems clinically appropriate and important as it may impact access to treatment options moving forward. The patient is deemed unstable and requires psychiatric hospitalization for diagnostic clarification, safety and stabilization, medication management and development of further coping skills. MNPR due to intermittent HI 10/08/2022: Ongoing depression and SI, continues to feel at times like she should have by suicide. Ongoing symptoms and thinking patterns consistent with ASD. Y-BOCS suggestive of likely OCD component. No evidence for history of acute luana. She agrees to increasing the sertraline to further target depression and OCD. Discussed medication treatment options in detail. Discussed risks, benefits and alternatives. Patient would like to start and consented to abilify for depression augmentation and OCD. Reviewed side effects including but not limited to: movement (TD, NMS), cardiac (QTc prolongation), and metabolic (stroke, insulin resistance) and necessity for fasting lipid and glucose labwork and AIMS done with score of 0. (1) Autism spectrum disorder: (2) Depression with suicidal ideation: (3) Homicidal ideations: (4) Obsessive compulsive disorder: Plan 10/08/2022: Increase sertraline to 50mg daily -Start abilify 2.5mg HS -Fasting lipid panel and glucose tomorrow AM 10/07/2022: -Continue sertraline 25mg daily - Y-BOCS and Mood disorder questionnaires for additional symptom screening -Completed duty to warn for peer RA with [facility] [employer] 10/06/2022: The patient was admitted to the [facility] ([facility] mental health unit) on q15 min checks (behavioral with suicide precautions) for safety. The patient will participate in group, recreational, and milieu therapies and will be offered additional individual and family sessions as clinically appropriate. -Start sertraline 25mg daily -Have her complete Y-BOCS OCD screening as some of her HI seems to be ego- dystonic and instrusive in nature -She is unwilling to share the name of the peer that she had HI toward but stated that she shared this information with her RA installation supervisor, she signed an PADMA for student care and advocacy at [facility]. Spoke with [facility] student care and advocacy alongside social work who confirmed they believe they know the peer she identified and will complete the duty to warn via [facility] campus police and will confirm when this has occurred. Inventory Assets Strengths: supportive relationship with her partner, willing to get treatment Needs: safety and stabilization, medication adjustment, additional coping skills, increased outpatient services Suicide Risk Level Suicide Risk Level: High-Moderate (q15 min suicide checks) (severe depression with SI with plan prior to admission but feels safe in the hospital, able to safety contract and agrees to let nursing/staff know should they develop plan, intent or feel unable to remain safe. 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 Chief Complaint "I could be better, could be worse". Review of Systems Sleep Information Total Hours of Sleep: 5 Meal Information Percent Meal Consumed - Breakfast: 100 Percent Meal Consumed - Lunch: 100 Percent Meal Consumed - Dinner: 90 Subjective Subjective Patient was seen & assessed and interval progress reviewed with treatment team nursing and social work. Attended groups and brightening at times with peers including laughing at times. Today reports her mood is "kind of sinusoidal" due "getting news and adjusting then getting more news and adjusting". Continues to endorse SI which she explains as "thoughts are different than actions". She continues to feel challenged by her recent homicidal thoughts reflecting that "did I have thoughts of hurting him (Anthony) yes, thoughts of killing him no". She describes feeling upset that her seeking help lead to Anthony being warned about her homicidal thoughts and that "I don't know how I'd do at school without him but to have him not trust me, I would have opted to not be around instead". She discussed how part of her feels that everyone would have been better off if she had by suicide rather than seeking help for her HI as she worries how this has negatively impacted Anthony. Worked on recognizing cognitive distortions and challenging her sense that all of her conclusions are "logical, it's all logic". Reviewed her mood disorder questionnaire which suggested possible symptoms of hypomania but she denied this ever being associated with decreased need for sleep or increased energy so results were ambiguous. Y-BOCS was positive and she feels that her most bothersome HI was ego-dystonic and instrusive in nature. She wants to try additional medication to help with her OCD symptoms. Physical Exam Psychiatric Orientation: alert and oriented x 3 Apperance: appropriately dressed and appropriately groomed Eye Contact: + poor eye contact Motor Behavior: no abnormal motor movements Speech: + abnormal rate/rhythm/volume of speech (monotone with little variability ) Affect: + constricted affect Mood: + depressed mood and + anxious mood Thought Process: goal directed thought process and + concrete thought process Thought Content: + obsessions (of violent thoughts) and reality based without delusions Suicidal Thoughts: denies suicidal thoughts (intermittent thoughts ), denies suicidal plan and denies suicidal intent Homicidal Thoughts: denies homicidal thoughts, denies homicidal plan and denies homicidal intent Hallucinations: no auditory hallucinations and no visual hallucinations Cognition: recent memory grossly intact, remote memory grossly intact, attention grossly intact and language grossly intact Estimated Intelligence: consistent with education level Insight: + limited insight Judgment: + limited judgement Vital Signs (Past 24 Hours) Last Vital Signs Temp 36.5 C 10/08/22 06:22 Pulse 78 10/08/22 06:22 Resp 16 10/08/22 06:22 BP 94/64 L 10/08/22 06:22 Pulse Ox 98 10/05/22 21:10 O2 Del Method Room Air 10/05/22 21:10 Results & Data ([facility]) Current Inpatient Medications Current Inpatient Medications: Current Inpatient Medications Acetaminophen (Acetaminophen 325 Mg Tab) 650 mg PO Q4H PRN PRN Reason: Headache or Minor Fever Stop: 11/04/22 20:18 Al Hydrox/Mg Hydrox/Simethicone (Aluminum/Magnesium Susp 30 Ml Udc) 30 ml PO Q4H PRN PRN Reason: GI Upset Stop: 11/04/22 20:18 Bismuth Subsalicylate (Bismuth Subsalicylate Liqd 236 Ml) 15 ml PO PRN PRN PRN Reason: Loose Stool Stop: 11/04/22 20:18 Hydroxyzine HCl (Hydroxyzine Hcl 25 Mg Tab) 50 mg PO HSZ PRN PRN Reason: Insomnia Stop: 11/04/22 20:18 Hydroxyzine HCl (Hydroxyzine Hcl 25 Mg Tab) 25 mg PO Q4H PRN PRN Reason: Anxiety Stop: 11/04/22 20:18 Magnesium Hydroxide (Magnesium Hydroxide Susp 30 Ml Udc) 30 ml PO DAILY PRN PRN Reason: Constipation Stop: 11/04/22 20:18 Olanzapine (Olanzapine 5 Mg Tablet) 5 mg PO BID PRN PRN Reason: Agitation Stop: 11/05/22 08:59 Sertraline HCl (Sertraline Hcl 50 Mg Tablet) 25 mg PO QAM ALICIA Stop: 11/05/22 12:44 Last Admin: 10/08/22 09:03 Dose: 25 mg Sodium Chloride (Sodium Chloride 0.65% Na Soln 45 Ml ([place])) 1 - 2 sprays NA PRN PRN PRN Reason: Nasal Dryness/Congestion Stop: 11/04/22 20:18
[2022-10-08] MEDS: ARIPiprazole 5 MG TAB PO SCH (21:10)
[2022-10-08] MEDS ORDERED: SERTRALINE HCL 50 MG TABLET PO SCH (21:18)
--- NOTE | 2022-10-09 09:37 | Psychiatric Progress Note ---
Date of Service October 09, 2022 Impression / Recommendations Impression Montse is a 21 year old woman with a history of self-harm, lupus anticoagulant disorder (hasn't been adherent with her Xarelto prescription) who was admitted for SI and HI toward a peer. Diagnostically consistent with Autism Spectrum Disorder as well as likely major depressive disorder and obsessive compulsive disorder. While she did not carry a diagnosis of ASD prior to admission, even without the ability to do a comprehensive ASD workup involving neuropsych testing, she presents with all of the classic symptoms of ASD to the point that making the diagnosis at this time seems clinically appropriate and important as it may impact access to treatment options moving forward. The patient is deemed unstable and requires psychiatric hospitalization for diagnostic clarification, safety and stabilization, medication management and development of further coping skills. MNPR due to recent HI 10/09/2022: Mood is staring to improve a bit, denies SI today and continues to deny HI. She experienced more intrusive violent thoughts (about something bad happening to her) when trying to fall asleep last night that contributing to significant insomnia last night. Reviewed medication options such as increasing or abilify or adding additional sleep medication and she would like to trazodone for insomnia if she struggles to fall asleep again. Reviewed side effects including but not limited to sedation, increased appetite. Will increase sertraline to further target depression and OCD. Tolerating initial dose of abilify, reviewed fasting glucose and lipid panel which is normal. Duty to warn completed alongside oncology social worker to her peer Anthony Harmon at approximately 10:30am. Spoke with Anthony on the phone and provided duty warn regarding nature of previous threat from Montse and confirmed that he had also received duty to warn message from [employer]. (1) Autism spectrum disorder: (2) Depression with suicidal ideation: (3) Homicidal ideations: (4) Obsessive compulsive disorder: Plan 10/09/2022: -Increase sertraline to 50mg daily tomorrow -Continue abilify 2.5mg HS -Start trazodone 50mg HS prn for insomnia 10/08/2022: sertraline to 25mg daily -Start abilify 2.5mg HS -Fasting lipid panel and glucose tomorrow AM 10/07/2022: -Continue sertraline 25mg daily - Y-BOCS and Mood disorder questionnaires for additional symptom screening -Completed duty to warn for peer RA with [employer] [employer] 10/06/2022: The patient was admitted to the [facility] ([facility] inpatient mental health unit) on q15 min checks (behavioral with suicide precautions) for safety. The patient will participate in group, recreational, and milieu therapies and will be offered additional individual and family sessions as clinically appropriate. 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 Spoke with [employer] student care and advocacy alongside social work who confirmed they believe they know the peer she identified and will complete the duty to warn via [employer] campus police and will confirm when this has occurred. Inventory Assets Strengths: supportive relationship with her partner, willing to get treatment Needs: safety and stabilization, medication adjustment, additional coping skills, increased outpatient services Suicide Risk Level Suicide Risk Level: Moderate (q15 min suicide checks) (severe depression with SI with plan prior to admission but today without SI, feels safe in the hospital, able to safety contract and agrees to let nursing/staff know should they develop plan, intent or feel unable to remain safe. 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 Chief Complaint "I had a lot of violent intrusive thoughts last night". Review of Systems Sleep Information Total Hours of Sleep: 4.75 Meal Information Percent Meal Consumed - Breakfast: 100 Percent Meal Consumed - Lunch: 90 Percent Meal Consumed - Dinner: 80 Subjective Subjective Patient was seen & assessed and interval progress reviewed with treatment team nursing and social work. Attending groups. Brighter affect at times today, laughing appropriately. Based on missed order she didn't get higher dose of sertraline today but continues to tolerate this well and agreeable to dose increase tomorrow. No side effects from abilify but it didn't help with intrusive memories and violent thoughts (of violent things happening to her) that occurred last night and made it very hard for her to fall asleep. She tried Vistaril as well with little benefit. Denies any HI or SI today. Is having some self-harm urges but hasn't acted on any of these. Reviewed normal fasting labwork. Physical Exam Psychiatric Orientation: alert and oriented x 3 Apperance: appropriately dressed and appropriately groomed Eye Contact: + fair eye contact Motor Behavior: no abnormal motor movements Speech: + abnormal rate/rhythm/volume of speech (monotone with little variability ) Affect: + constricted affect Mood: + depressed mood and + anxious mood Thought Process: goal directed thought process and + concrete thought process Thought Content: + obsessions and reality based without delusions Suicidal Thoughts: denies suicidal thoughts, denies suicidal plan and denies suicidal intent Homicidal Thoughts: denies homicidal thoughts, denies homicidal plan and denies homicidal intent Hallucinations: no auditory hallucinations and no visual hallucinations Cognition: recent memory grossly intact, remote memory grossly intact, attention grossly intact and language grossly intact Estimated Intelligence: consistent with education level Insight: + fair insight Judgment: + fair judgement Vital Signs (Past 24 Hours) Last Vital Signs Temp 36.6 C 10/09/22 06:25 Pulse 69 10/09/22 06:27 Resp 16 10/09/22 06:25 BP 113/77 10/09/22 06:27 Pulse Ox 98 10/05/22 21:10 O2 Del Method Room Air 10/05/22 21:10 Results & Data ([facility]) Laboratory Results Laboratory Results - last 24 hr 10/09/22 08:35 Fasting Glucose Pending Triglycerides Pending Cholesterol Pending LDL Cholesterol, Calc Pending VLDL Cholesterol, Calc Pending HDL Cholesterol Pending Cholesterol/HDL Ratio Pending Current Inpatient Medications Current Inpatient Medications: Current Inpatient Medications Acetaminophen (Acetaminophen 325 Mg Tab) 650 mg PO Q4H PRN PRN Reason: Headache or Minor Fever Stop: 05/17/23 20:18 Al Hydrox/Mg Hydrox/Simethicone (Aluminum/Magnesium Susp 30 Ml Udc) 30 ml PO Q4H PRN PRN Reason: GI Upset Stop: 11/04/22 20:18 Aripiprazole (Aripiprazole 5 Mg Tab) 2.5 mg PO HS ALICIA Stop: 11/07/22 21:59 Last Admin: 10/08/22 21:10 Dose: 2.5 mg Bismuth Subsalicylate (Bismuth Subsalicylate Liqd 236 Ml) 15 ml PO PRN PRN PRN Reason: Loose Stool Stop: 11/04/22 20:18 Hydroxyzine HCl (Hydroxyzine Hcl 25 Mg Tab) 50 mg PO HSZ PRN PRN Reason: Insomnia Stop: 11/04/22 20:18 Last Admin: 10/08/22 23:51 Dose: 50 mg Hydroxyzine HCl (Hydroxyzine Hcl 25 Mg Tab) 25 mg PO Q4H PRN PRN Reason: Anxiety Stop: 11/04/22 20:18 Magnesium Hydroxide (Magnesium Hydroxide Susp 30 Ml Udc) 30 ml PO DAILY PRN PRN Reason: Constipation Stop: 11/04/22 20:18 Olanzapine (Olanzapine 5 Mg Tablet) 5 mg PO BID PRN PRN Reason: Agitation Stop: 11/05/22 08:59 Sertraline HCl (Sertraline Hcl 50 Mg Tablet) 25 mg PO QAM ALICIA Stop: 11/05/22 12:44 Last Admin: 10/09/22 09:00 Dose: 25 mg Sodium Chloride (Sodium Chloride 0.65% Na Soln 45 Ml ([place])) 1 - 2 sprays NA PRN PRN PRN Reason: Nasal Dryness/Congestion Stop: 11/04/22 20:18 Mental Health & Subst Abuse Tx Truck Rental Manager Name of Truck Rental Manager: Student Care and Advocacy Phone Number for Truck Rental Manager: [phone] Case Management Appointment Comment: zoom link will be sent to [employer] email Post Discharge Appointments Primary Care Physician Name Of Family Doctor/PCP: [facility]- Epi Rae NP Primary Care Date of Future Appointment with PCP: 10/22/2022 Time of Appointment with PCP: 10:45am Provider Appointment Comment: [address], [place] [address] Contact Information Discharge Discharge Address: [id number] [place] [address], [place], [place] [address]
[2022-10-09 09:39] LABS: Chol HDL Ratio 3.5 (0-5)
[2022-10-09] MEDS ORDERED: traZODone HCL 50 MG TAB PO PRN (14:42)
[2022-10-09] MEDS ORDERED: hydrOXYzine HCl 25 MG TAB PO PRN (14:43)
[2022-10-09] MEDS: ARIPiprazole 5 MG TAB PO SCH (21:24)
[2022-10-10] MEDS ORDERED: SERTRALINE HCL 50 MG TABLET PO SCH (09:00)
--- NOTE | 2022-10-10 12:19 | Discharge Summary ---
Date of Service October 10, 2022 History of Present Illness as per Dr. Aguila on admission: Shawna presented to the hospital at the recommendation of [employer] [facility] for worsening SI with inability to safety plan and HI toward a peer with thoughts of stabbing him with a knife. She has been self- harming via cutting and burning herself and more recently via punching her fist into a wall as "I've determined how far I can hurt my dominant hand without it interfering with my work". She describes her self-harm as occurring in bouts and that it increased in July due to worsening depression and stressors related to school. 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 She endorses symptoms of depression including hopelessness, helplessness, low motivation, anhedonia, poor concentration and "sporadic" energy level, sleep, and appetite. She speaks vaguely at times about various symptoms, including suicidality, by quoting statistics about methods of suicide and rates of lethality of various forms of suicide but notes that she hasn't ever settled on a specific plan because "a lot of them aren't logistically sound due to lack of access". She endorses a long history of having intrusive homicidal thoughts but that these intensified toward a peer who also serves as an RA after "we had a break-up of sorts, not a romantic one but that's the best way to describe it". Since that time she'd had thoughts of wanting to hurt this peer to the point "my desire and I have too much alone time with him" caused her to seek help from a smoke jumper supervisor which lead to her CAPS evaluation and then presentation to the hospital. She describes these violent thoughts as historically being "thoughts of harm as a defensive manner" but recently became more directed and "less tangible" which she attributes to not feeling as though she fits in and facing a lot of stress and social issues. She describes that "[place] and I[place] permitted to feel human". She is confident that she would never act on her violent thoughts stating "it wouldn't be logical to hurt people that culturally indefensible across all cultures". 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 Further recent history reviewed and confirmed as documented by ED psych CM on 10/05/2022: "Pt was referred here from [facility]S due to not being able to contract for safety for herself or contract to not harm others. Pt states she does not have a plan to hurt anyone but does have specific people in mind due to different situations that happened. She has no history of violence or aggression. She has been having suicidal thoughts as well and stated her plan would be to overdose. She stated she does have a specific drug in mind but is not sure how she would obtain it currently. She stated she has researched how much she would need to take in order to kill herself. Pt also has two perez on her arm. She stated she has a history of self-harm by cutting and burning herself. She has never needed medical attention due to self-harm. The pt is very vague in answering questions and it's difficult to get straight answers from her. CAPS report states she was vague with them as well. Their report states the pt reports no specific plan for suicide but that she created a "to-do" list for things that she would like to complete prior to killing herself. Met with pt to complete psychiatric assessment. Pt states she does not have any mental health diagnosis and has never been inpatient for treatment before. She has no outpatient providers. Pt reports increased depression symptoms of sadness, crying, feeling helpless and hopeless, self-devaluation, loss of daily functioning, lack of motivation, sporadic appetite, and sporadic sleep. Pt reports she will go days at a time without feeling hungry at all and then will feel extremely hungry other days. She also reports having mood shifts that are similar in that she will have periods of time where her mood is elevated and she has increased energy. She reports these periods can last from a couple of hours to a couple of days. During these periods she states she is more talkative, has racing thoughts, flight of ideas, excessive spending, and requires less sleep. Pt stated that she sometimes gets verbally aggressive but has not acted out aggressively. She does have homicidal thoughts toward people. There are specific people that the pt has thoughts about killing and harming but she will not disclose who these people are. She stated this past Wednesday she was having a disagreement with one of these individuals and found herself having thoughts to kill him by stabbing while also having a knife in her hand. Pt denies picking the knife up due to these thoughts and stated the knife was already in her hand and she believes having possession of the knife is what made her think of this plan. She also stated she later in the evening had thoughts of slamming this individual into a wall and choking him just to see the fear in his eyes. While discussing her homicidal thoughts and thoughts of violence the pt has a large smile on her face." The ED provider recommended she be restarted on Xarelto but she declined allowing me to start this, stated she will consider restarting in the outpatient setting. She is not currently prescribed any psychiatric medications. Psychiatric ROS notable for no current nor history of symptoms of luana, psychosis, PTSD, nor eating disorder. History of self-harm via cutting, burning, punching. Physical Exam Psychiatric See admission H&P and DOD assessment. Vital Signs (Past 24 Hours) Last Vital Signs Temp 36.8 C 10/10/22 06:36 Pulse 99 H 10/10/22 06:36 Resp 16 10/10/22 06:36 BP 97/67 L 10/10/22 06:36 Pulse Ox 98 10/05/22 21:10 O2 Del Method Room Air 10/05/22 21:10 Principal Diagnosis depression with SI Psychiatric Data See daily stay summary. 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 Medication changes included trials of Abilify, Zoloft, and prn trazodone and they tolerated this well. A family session was held with the patient's father and safety plan was completed prior to discharge. During stay there was extensive discussion around HI and a duty to warn was completed. The patient is aware and plans to respect boundaries in that is not allowed on [facility] campus. She voices relief that "I know I can't hurt anybody" as will be with father and traveling out of the area to [place] for a period of time prior to return to [place] (time in [place] will be limited and not overlap with fellow RA's return home). She is aware of need for monitoring for medications given longer term risks with Abilify and reviewed may be tapered when Zoloft takes full effect. Safety plan includes father holding on to medications and only allowing few days access in pill minder. Ongoing therapy and psychiatric prescriber referrals have been discussed but family aware will need to follow up when get home to [place]. Day of Discharge Assessment Today the patient voices readiness for discharge. They note improvement in mood and deny thoughts to harm self or others. Thoughts remain organized and they are improved from admission. There is no evidence of psychosis. They agree to take mediations as prescribed and keep follow-up appointments. They are stable for discharge to outpatient level of care. Transition of Care Transition Of Care Record: was reviewed with the patient Advance Directives Advance Directives Information Provided: No Advance Directives: No Mental Health Advance Directive: No Advance Directives on File: No Living Will: No Power of Lockstitch Sleeve Maker: No Advance Directives Reason:: Declines as Mental Health Visit. 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24 Baso # (Auto) 0.04 Immature Gran # (Auto) 0.06 Sodium 136 Potassium 3.8 Chloride 108 H Carbon Dioxide 23 Anion Gap 5 BUN 10 Creatinine 0.65 Est Cr Clr Drug Dosing 127.9 Est GFR ( Amer) 148.1 Est GFR (Non-Af Amer) 127.8 BUN/Creatinine Ratio 15.4 Glucose 98 Fasting Glucose Calcium 9.6 Total Bilirubin 0.4 AST 13 ALT 13 Alkaline Phosphatase 65 Total Protein 7.4 Albumin 4.2 Globulin 3.2 Albumin/Globulin Ratio 1.3 Triglycerides Cholesterol LDL Cholesterol, Calc VLDL Cholesterol, Calc HDL Cholesterol Cholesterol/HDL Ratio TSH 1.306 Urine Color Urine Appearance Urine pH Ur Specific [place] Urine Protein Urine Glucose (UA) Urine Ketones Urine Blood Urine Nitrite Urine Bilirubin Urine Urobilinogen Ur Leukocyte Esterase Urine Test Salicylates Urine Opiates Screen Ur Methadone, Qual Acetaminophen Urine Barbiturates Ur Phencyclidine (PCP) U Amphetamin/Meth Scrn MDMA (Ecstasy) Screen U Benzodiazepines Scrn Ur Cocaine Metabolite U Marijuana (THC) Screen Ethyl Alcohol mg/dL SARS-CoV-2, RNA, NAAT 10/05/22 10/05/22 10/05/22 15:35 15:35 15:35 WBC RBC Hgb Hct MCV MCH MCHC RDW Std Deviation RDW Coeff of Libra Plt Count MPV Immature Gran % (Auto) Neut % (Auto) Lymph % (Auto) Sanborn % (Auto) Eos % (Auto) Baso % (Auto) Neut # (Auto) Lymph # (Auto) Sanborn # (Auto) Eos # (Auto) Baso # (Auto) Immature Gran # (Auto) Sodium Potassium Chloride Carbon Dioxide Anion Gap BUN Creatinine Est Cr Clr Drug Dosing Est GFR ( Amer) Est GFR (Non-Af Amer) BUN/Creatinine Ratio Glucose Fasting Glucose Calcium Total Bilirubin AST ALT Alkaline Phosphatase Total Protein Albumin Globulin Albumin/Globulin Ratio Triglycerides Cholesterol LDL Cholesterol, Calc VLDL Cholesterol, Calc HDL Cholesterol Cholesterol/HDL Ratio TSH Urine Color Urine Appearance Urine pH Ur Specific [place] Urine Protein Urine Glucose (UA) Urine Ketones Urine Blood Urine Nitrite Urine Bilirubin Urine Urobilinogen Ur Leukocyte Esterase Urine Test Salicylates < 3.0 L Urine Opiates Screen Ur Methadone, Qual Acetaminophen < 3 L Urine Barbiturates Ur Phencyclidine (PCP) U Amphetamin/Meth Scrn MDMA (Ecstasy) Screen U Benzodiazepines Scrn Ur Cocaine Metabolite U Marijuana (THC) Screen Ethyl Alcohol mg/dL < 10.0 SARS-CoV-2, RNA, NAAT NEGATIVE 10/05/22 10/05/22 10/05/22 15:35 15:35 Unknown WBC RBC Hgb Hct MCV MCH MCHC RDW Std Deviation RDW Coeff of Libra Plt Count MPV Immature Gran % (Auto) Neut % (Auto) Lymph % (Auto) Sanborn % (Auto) Eos % (Auto) Baso % (Auto) Neut # (Auto) Lymph # (Auto) [place] # (Auto) Eos # (Auto) Baso # (Auto) Immature Gran # (Auto) Sodium Potassium Chloride Carbon Dioxide Anion Gap BUN Creatinine Est Cr Clr Drug Dosing Est GFR ( Amer) Est GFR (Non-Af Amer) BUN/Creatinine Ratio Glucose Fasting Glucose Calcium Total Bilirubin AST ALT Alkaline Phosphatase Total Protein Albumin Globulin Albumin/Globulin Ratio Triglycerides Cholesterol LDL Cholesterol, Calc VLDL Cholesterol, Calc HDL Cholesterol Cholesterol/HDL Ratio TSH Urine Color Yellow Urine Appearance Clear Urine pH 5.0 Ur Specific [place] 1.022 Urine Protein Negative Urine Glucose (UA) Negative Urine Ketones Negative Urine Blood Negative Urine Nitrite Negative Urine Bilirubin Negative Urine Urobilinogen Negative Ur Leukocyte Esterase Negative Urine Test Negative Salicylates Urine Opiates Screen Neg Ur Methadone, Qual Neg Acetaminophen Urine Barbiturates Neg Ur Phencyclidine (PCP) Neg U Amphetamin/Meth Scrn Neg MDMA (Ecstasy) Screen Neg U Benzodiazepines Scrn Neg Ur Cocaine Metabolite Neg U Marijuana (THC) Screen Neg Ethyl Alcohol mg/dL SARS-CoV-2, RNA, NAAT 10/09/22 08:35 WBC RBC Hgb Hct MCV MCH MCHC RDW Std Deviation RDW Coeff of Libra Plt Count MPV Immature Gran % (Auto) Neut % (Auto) Lymph % (Auto) Sanborn % (Auto) Eos % (Auto) Baso % (Auto) Neut # (Auto) Lymph # (Auto) [place] # (Auto) Eos # (Auto) Baso # (Auto) Immature Gran # (Auto) Sodium Potassium Chloride Carbon Dioxide Anion Gap BUN Creatinine Est Cr Clr Drug Dosing Est GFR ( Amer) Est GFR (Non-Af Amer) BUN/Creatinine Ratio Glucose Fasting Glucose 85 Calcium Total Bilirubin AST ALT Alkaline Phosphatase Total Protein Albumin Globulin Albumin/Globulin Ratio Triglycerides 53 Cholesterol 152 LDL Cholesterol, Calc 98 VLDL Cholesterol, Calc 11 HDL Cholesterol 43 Cholesterol/HDL Ratio 3.5 TSH Urine Color Urine Appearance Urine pH Ur Specific [place] Urine Protein Urine Glucose (UA) Urine Ketones Urine Blood Urine Nitrite Urine Bilirubin Urine Urobilinogen Ur Leukocyte Esterase Urine Test Salicylates Urine Opiates Screen Ur Methadone, Qual Acetaminophen Urine Barbiturates Ur Phencyclidine (PCP) U Amphetamin/Meth Scrn MDMA (Ecstasy) Screen U Benzodiazepines Scrn Ur Cocaine Metabolite U Marijuana (THC) Screen Ethyl Alcohol mg/dL SARS-CoV-2, RNA, NAAT Hospital Course (1) Autism spectrum disorder: (2) Depression with suicidal ideation: (3) Homicidal ideations: (4) Obsessive compulsive disorder: Plan 10/09/2022: -Increase sertraline to 50mg daily tomorrow -Continue abilify 2.5mg HS -Start trazodone 50mg HS prn for insomnia 10/08/2022: sertraline to 25mg daily -Start abilify 2.5mg HS -Fasting lipid panel and glucose tomorrow AM 10/07/2022: -Continue sertraline 25mg daily - Y-BOCS and Mood disorder questionnaires for additional symptom screening -Completed duty to warn for peer RA with [facility] [employer] 10/06/2022: The patient was admitted to the [facility] ([facility] mental [facility]) on q15 min checks (behavioral with suicide precautions) for safety. The patient will participate in group, recreational, and milieu therapies and will be offered additional individual and family sessions as clinically appropriate. -Start sertraline 25mg daily -Have her complete Y-BOCS OCD screening as some of her HI seems to be ego-dyst onic and instrusive in nature -She is unwilling to share the name of the peer that she had HI toward but stated that she shared this information with her RA smoke jumper supervisor, she signed an PADMA for student care and advocacy at [facility]. Spoke with [facility] student care and advocacy alongside social work who confirmed they believe they know the peer she identified and will complete the duty to warn via [facility] campus police and will confirm when this has occurred. Mental Health & Subst Abuse [place] Traffic Control Specialist Name of Traffic Control Specialist: Student Care and Advocacy Phone Number for Traffic Control Specialist: [phone] Case Management Appointment Comment: zoom link will be sent to [employer] email Post Discharge Appointments Primary Care Physician Name Of Family Doctor/PCP: [facility]- Epi Rae NP Primary Care Date of Future Appointment with PCP: 10/22/2022 Time of Appointment with PCP: 10:45am Provider Appointment Comment: [address], [place] [address] Smoking Cessation Counseling Tobacco Cessation Medication Prescribed at Discharge: Not Applicable/Non-Smoker Contact Information Discharge Discharge Address: [address] [place] [id number] Discharge Plan Discharge Items Patient Disposition: Home - Self-Care Reason For Visit: SUICIDAL IDEATION Discharge Diagnosis: depression with suicidal thoughts Activity: Resume your previous activity Non-emergency contact: Primary Care Provider, Psychiatrist and Therapist Call non-emergency contact if: you have any medication questions and your symptoms worsen Follow-up/Referrals: [place] [Primary Care Provider] - Diet: Regular Addtl Attending Provider Instructions: SPECIAL CARE INSTRUCTIONS: 1. Follow through with your scheduled aftercare appointments. If unable to keep an appointment, please call to reschedule. 2. Take your medication only as prescribed. Medication should not be changed or stopped without the approval of your doctor. In the event of worsening symptoms or concerns about side effects, contact your doctor immediately. 3. Utilize new healthy coping skills, anger management skills, and stress management skills learned during your hospitalization. Journal feelings and process them with a support person. Identify stressors or situations that may result in relapse, deterioration or inappropriate behaviors and develop a plan to deal with those issues. 4. If your coping skills are ineffective and you are in crisis, contact your outpatient providers for direction. If unable to reach your providers, please call the [facility] CRISIS LINE AT , go to the [facility] walk-in center at [address], [address], [place], or go to the closest Emergency Room. 5. Avoid alcohol and un-prescribed drugs. 6. You have been provided with the Mental Health Advance Directives Pamphlet for your review. 7. Your condition is stable for discharge to outpatient level of care, but recovery is an ongoing process. Ifthoughts to harm yourself or others return, follow the safety plan developed during your stay. Planning for a safe return home includes securing weapons. Our treatment team recommends weaponsbe removed from the home until your outpatient provider reassesses your progress. In rare cases where the items themselvescannot be removed, guns and ammunitionshould be secured separatelyand keys stored by a reliable personoutside of the home. If you were admitted on an involuntary commitment, the police or other legal authorities may be involved in this process. AFTERCARE APPOINTMENTS: * Please call your insurance company prior to your scheduled appointment to confirm your aftercare providers are covered. Take your insurance information to your appointments. WHO TO CALL AND WHEN: Medical Emergencies: For questions or emergencies related to your hospital stay, please contact the Inpatient Behavioral Health Unit at [phone]. A rigging worker is on-call 11/01 for the Behavioral Health Unit for emergencies At any time you feel your situation is an emergency, you may also call 911 immediately. Pending Studies at Discharge: No Stand-Alone Forms: My [facility] VisiQuate, Smoking Cessation Medications and DC Order Prescriptions: New aripiprazole [Abilify] 5 mg Tablet 2.5 mg PO HS Qty: 30 0RF trazodone 50 mg Tablet 50 mg PO HS PRN (Reason: insomnia) Qty: 30 0RF sertraline 50 mg Tablet 50 mg PO QAM Qty: 30 0RF Discharge Orders: Discharge Order (Routine); Ordered 10/10/22 Ordered By: Rachel Sosa Admission Data Admit Date/Time: 10/05/22 20:19 Attending Provider: Rachel Sosa Admit Provider: Hyacinth Aguila Primary Care Provider: [facility] Other Providers: Hyacinth Aguila Other Interventions: Discharge Summary Assessment (RN) Last Done: 10/10/22 12:44 PSY Interdisciplinary Discharge Planning Last Done: 10/10/22 12:47 Coding Level of Care Code 61759 D/C day mgmt > 30 min Diagnoses Autism spectrum disorder F84.0 Depression with suicidal ideation F32.A; R45.851 Homicidal ideations R45.850 Obsessive compulsive disorder F42.9
== END 2022-10-10 18:05 | disposition home or self-care (01) | DRG 881 ==
LOC: ED 15:13 → SUATTDRO 20:19 → 3S 20:19